=== PATIENT | male | born 1980 ===

== ENCOUNTER 2022-03-20 12:00 | Outpatient (RCR) | payer OTHER, SELFPAY ==
[2022-03-04 12:43] VITALS: BP 116/70; PULSE 76; TEMP 36.7
[2022-03-04 13:55] VITALS: BMI 30.4
--- NOTE | 2022-03-04 14:16 | PC.ADMIT ---
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 Patient reports difficulty concentrating and poor short term memory. Patient also reported work related issues however did not elaborate. 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 Patient is from [place] and plans on moving back to [place] on March 26 2022 and finishing classes online. Patient lives with his partner whom is supportive and he reports he has plans on marrying her. Refer to [facility] for more information. Patient is alert and oriented x4. Calm and cooperative. He presents with depressed mood and affect. Reports passive SI without a plan or intent to kill himself. Medications reconcield with patient and patient's pharmacy. Patient reports he is taking his medications as prescribed and is using a pill organizer.
[2022-03-04 14:50] LABS: Amphetamine Screen Urine Not Detected (Not Detect); Barbiturates, Urine Not Detected (Not Detect); Benzodiazepines Screen Urine Not Detected (Not Detect); Cannabinoid Screen Urine Not Detected (Not Detect); Cocaine Screen Urine Not Detected (Not Detect); Fentanyl, urine Not Detected (Not Detect); Opiate Screen Urine Not Detected (Not Detect); Phencyclidine Screen Urine Not Detected (Not Detect)
--- NOTE | 2022-03-04 15:02 | P.HPPSP_ITS ---
HPI Date of Service: 03/04/22 Chief Complaint: MDD,OCD Sources of Information: patient interviewed, chart reviewed and crisis/core team assessment reviewed HPI Medical Problems Affecting Mental Status: No Narrative: Patient is a 41-year-old single male, from [place], resides with his partner. She is also a PhD student at the school. Describes relationship as supportive. He has been in this [place] seven years. Referred to [facility] through his psychiatric provider at [facility], due to symptoms of increased depression, OCD, over the past 5-6 weeks. Difficulty with sleep, poor appetite. Weight stable. Symptoms include anhedonia, poor motivation, intrusive thoughts, ruminating about the past, difficulty with ADLs, feeling hopeless and helpless. Has had passive SI with no intent or plan, denies any current SI today, either active or passive. No safety concerns at this time. Has also had increased OCD symptoms, including impulsive sexual behavior, masturbation. Patient reports a long history of depression since he was 17 years old. Reports experiencing severe anxiety after a break-up of a relationship that had lasted 8 years. Currently has a new partner. 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 States that he should be completed with his course work, but that he has had to retake several classes as well as take in-complete grades due to increased symptoms of depression / OCD. Reports difficulties with cognition, processing new information, executive functioning, learning and memory. States that when he has been depressed in the past he has not had these symptoms, but that this is new. It has been recommended by psychiatric provider at [facility] that he obtain neuropsych testing. He states that he has always had difficulty in school, but has never been formally diagnosed with a learning disorder. He states that he was always able to compensate for this by spending extra time studying. States that he currently feels overwhelmed, and plans to move back to [place] at the end of this month. He says his girlfriend will remain here to complete her coursework, but that they plan to remain as a couple. He says their plan is to complete their studies and move together to pursue their careers. He reports experiencing a crisis in September of this year, where he became extremely depressed and suicidal with a plan. He was not hospitalized at that time. He states that at that time he became aware of for things. They are 1.he is not like other people; 2. he has a mental illness, which is depression; 3. He needs to go at his own pace, not compare himself to others; and 4. He needs to take life 1 day at a time. He says he has not been prescribed any psychiatric medications until recently, and he feels they are beginning to help improve his mood. Currently prescribed aripiprazole 2.5 mg daily, 2 propria on SR 100 mg b.i.d., lamotrigine 150 mg daily, sertraline 50 mg daily. He is satisfied with this current medication regimen, and would like to remain on this. He is requesting refills. Past Psychiatric History: First depressive episode age 17. Had alternative treatments in [place] when he was younger. Currently working with psychiatric nurse practitioner at [facility], MÓNICA Ward. Has therapist Agatha, who is in [place]. No previous medication trials. No history hospitalizations, respite, PHP. Medical Evaluation Reviewed: Yes [facility] Medical History History of abdominal hernia Surgical History History of parotid gland removal Family History: Mother: Alcohol is some, depression. Maternal uncle: alcohol, depression. maternal grandfather: alcohol. Social History: Born to both parents, raised in [place]. Has 1 sister and 1 brother. Describes family as supportive. Completed high school, master's degree in [place]. Moved to [facility] 7 years ago. 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 Currently struggling, has failed several courses, taken incomplete grades in others. Met developmental milestones as expected. No formal diagnosis of learning disability, however states that he has always struggled in school. States that he would put in extra time and effort in order to be successful. Resides with partner. Reports plan to move back to [place] in three weeks. Substance History: Reports drinking excessively during pandemic, reports that now he only consumes alcohol once monthly, 1-2 drinks. Trauma History: none reported Diagnostics Vital Signs (24Hr): Vital Signs - 24 hr 03/04/22 12:43 Temperature 98.0 F Pulse Rate 76 Blood Pressure 116/70 BMI result Body Mass Index 30.4 Labs Labs: Laboratory Results - last 48 hr 03/04/22 12:23 Urine Opiates Screen Not Detected Urine Fentanyl Screen Not Detected Ur Barbiturates Screen Not Detected Ur Phencyclidine Scrn Not Detected Ur Amphetamines Screen Not Detected U Benzodiazepines Scrn Not Detected Urine Cocaine Screen Not Detected U Marijuana (THC) Screen Not Detected Meds/Allergies Meds Home Medications Medication Instructions Recorded Confirmed Type aripiprazole 5 mg tablet (Abilify) 2.5 mg PO DAILY 03/04/22 03/04/22 History lamotrigine 150 mg tablet 1 tab PO DAILY 03/04/22 03/04/22 History Allergies Allergies Allergy/AdvReac Type Severity Reaction Status Date / Time No Known Allergies Allergy Verified 03/04/22 13:56 Mental Status Exam Mental Status Exam Narrative: Well developed, well nourished male, in NAD. Gait/posture within normal limits. No tics or tremors, no abnormal movements. Dressed appropriately for age/occasion. Fully cooperative with interview. Or perceptual disturbances noted. Denies any SI/HI/AH/VH. Reports that he feels safe. Patient Appearance: Well Grooomed and Appropriate Patient Orientation: Person, Place, Time and Situation Patient Behavior: Appropriate, Cooperative and Good Eye Contact Mood Description: Depressed Affect Description: Calm and Depressed Patient Cognition Impaired: No Ability to Follow Directions: Good Speech Pattern: Clear and Appropriate Memory Description: Intact Hallucinations: None Delusions: Not Present Thought Process: Intact Thought Content: positive for Intact, positive for Obsessional Thoughts, positive for Goal Oriented and positive for Linear Depressive Symptoms: Difficulty Sleeping, Changes in Appetite (decreased), Loss of Int. in Activity, Low Self Esteem, Loss of Energy and Difficulty Concentrating Judgement: Fair Assessment & Plan Assessment & Plan (1) Major depressive disorder, recurrent severe without psychotic features: Status: Acute Code(s): F33.2 - Major depressive disorder, recurrent severe without psychotic features Assessment and Plan: Patient reports longstanding history of depression, 1st episode at age 17. Reports had crisis this past September, felt actively suicidal. Did not get admitted to hospital at that time. Had alternative treatments in [place]. First time prescribed medications was recently, at [facility] [place], with PMHNP. Satisfied with current medication regimen, feels his symptoms are beginning to improve. Denies any thoughts of harm to self or others in any way. Was drinking heavily during pandemic, due to isolation. States that he stopped when pandemic lifted, and now only drinks approximately once per month, 1 to 2 drinks. Denies any concern with this. He sates he has OCD, and that the sertraline is working well with the compulsive behaviors. Had a higher dose of 100mg, but experienced side effects, dose has since been lowered to 50mg daily. Feels the OCD is under control presently. Patient reports that he plans to return home to [place] for the hol, and then plans to stay there, living with his parents. He says his parents are unaware of this plan, but that he has decided it is the best decision for him. He says he will speak about this with them soon. He has applied for a job in that country, and has been offered the position. He has been struggling with cognition, difficulty with executive function while here. He says he has had difficulty with the mathematical formulations, analyzing data in his school program. He is not sure if this is related to his depression, or that possibly he has some underlying learning disorder. It was recommended by [facility] that he obtain neuropsych testing. He has not scheduled an appointment in [place]. He says he will do this once he returns to [place]. (2) OCD (obsessive compulsive disorder): Status: Acute Code(s): F42.9 - Obsessive-compulsive disorder, unspecified Plan 1. Continue with current [facility] plan of care. 2. Continue with medication regimen as currently prescribed. Refills for bupropion, sertraline sent to pharmacy. 3. Follow-up as per protocol. Patient educated on: diagnosis, medication risk/benefits, substance abuse and therapeutic strategies Informed Consent: understands Reason for continued partial hosp. stay Substantial Risk for: harm to self, inability to function and rapid decompensation Certification I certify that partial hospital treatment is medically necessary due to the symptoms and problems resulting from the patient's mental illness and the failure to treat the patient at the partial hospital level of care would likely result in the patient requiring inpatient psychiatric care which could not be prevented at a less intensive level of care.
--- NOTE | 2022-03-07 16:48 | HO.PHPIOP ---
Case opened in treatment team
--- NOTE | 2022-03-08 16:26 | HO.PHPPROGNO ---
Subjective Subjective Date of Service: 03/08/22 Reason For Visit: MDD,OCD Interim History: Continues with depressed mood. No SI, no safety concerns. Sleep, appetite okay , no concerns. Finding groups helpful. Reports difficulty with memory, lack of concentration. Has not had neuropsych testing completed, plans to do so in [place]. Requests medication for attention. Medication Compliance: Yes Side effects from medications: No Attending Groups: Yes Review of Systems Acute medical concerns: No Medical Review of Systems: unchanged Review of Systems Review of Systems Yes all other systems are reviewed and are negative Constitutional: Reports no additional constitutional complaints Mental Status Exam Mental Status Exam Narrative: NAD Patient Appearance: Well Grooomed and Appropriate Patient Orientation: Person, Place, Time and Situation Patient Behavior: Appropriate, Cooperative and Good Eye Contact Mood Description: Depressed Affect Description: Calm and Depressed Patient Cognition Impaired: No Ability to Follow Directions: Good Speech Pattern: Clear and Appropriate Memory Description: Intact Hallucinations: None Delusions: Not Present Thought Process: Intact Thought Content: positive for Intact, positive for Obsessional Thoughts, positive for Goal Oriented and positive for Linear Depressive Symptoms: Loss of Int. in Activity, Low Self Esteem, Loss of Energy and Difficulty Concentrating Judgement: Fair Diagnostics Vital Signs (24Hr): BMI result Body Mass Index 30.4 Assessment & Plan Assessment & Plan (1) Major depressive disorder, recurrent severe without psychotic features: Status: Acute Code(s): F33.2 - Major depressive disorder, recurrent severe without psychotic features Assessment and Plan: Continues with depressed mood. No SI, no safety concerns. Sleep, appetite okay . Finding groups helpful. Has been sharing more. Reports difficulty with memory, lack of concentration, which has been ongoing. concerned, as now it is getting more difficult, as the semester in nearing end. Has not had neuropsych testing completed, plans to do so in [place]. continues to plan to move to [place] in several weeks. Requests medication for attention. Discussed need for neuropsych testing, as well as concerns regarding prescribing medication for ADD, with no diagnosis. Patient states that he is otherwise satisfied with current medication regimen. (2) OCD (obsessive compulsive disorder): Status: Acute Code(s): F42.9 - Obsessive-compulsive disorder, unspecified Assessment and Plan: Reports sertraline is helping manage sx. Plan 1. continue with current [facility] plan of care. 2. Continue with current medication regimen as prescribed. 3. Follow-up as per protocol. Patient educated on: diagnosis, medication risk/benefits and therapeutic strategies Informed Consent: understands Reason for contiued partial hosp. stay Substantial Risk for: inability to function and rapid decompensation Certification I certify that partial hospital treatment is medically necessary due to the symptoms and problems resulting from the patient's mental illness and the failure to treat the patient at the partial hospital level of care would likely result in the patient requiring inpatient psychiatric care which could not be prevented at a less intensive level of care. I spent minutes with the patient and/or on the patient floor today, greater than?50% of which was spent counseling/coordinating care. Discharge Plan Discharge Attending provider: Jake Son Medications: New sertraline 50 mg tablet 50 mg PO DAILY Qty: 30 0RF bupropion HCl [Wellbutrin SR] 100 mg tablet sustained-release 12 hr 100 mg PO BID Qty: 60 0RF No Action lamotrigine 150 mg tablet 1 tab PO DAILY aripiprazole [Abilify] 5 mg Tablet 2.5 mg PO DAILY Rx Instructions: Take 1/2 tab daily in the PM.
--- NOTE | 2022-03-12 15:33 | P.PNPSP_ITS ---
Subjective Subjective Date of Service: 03/12/22 Reason For Visit: MDD,OCD Medical Problems Affecting Mental Status: No Interim History: Reports less depressed. OCD/anxiety sx increased. Reports feeling ?guilty ?. Denies SI, no safety concerns. Medication Compliance: Yes Side effects from medications: No Attending Groups: Yes Review of Systems Acute medical concerns: No Medical Review of Systems: unchanged Review of Systems Review of Systems Yes all other systems are reviewed and are negative Constitutional: Reports no additional constitutional complaints Mental Status Exam Mental Status Exam Narrative: NAD Patient Appearance: Well Grooomed and Appropriate Patient Orientation: Person, Place, Time and Situation Level of Consciousness: Appropriate Patient Behavior: Appropriate, Cooperative and Good Eye Contact Mood Description: Anxious Affect Description: Depressed and Anxious Patient Cognition Impaired: No Ability to Follow Directions: Good Speech Pattern: Clear and Appropriate Memory Description: Intact Hallucinations: None Delusions: Not Present Thought Process: Intact Thought Content: positive for Obsessional Thoughts Depressive Symptoms: Increased Anxiety, Loss of Int. in Activity, Low Self Esteem, Loss of Energy and Difficulty Concentrating Judgement: Fair Diagnostics Vital Signs (24Hr): BMI result Body Mass Index 30.4 Assessment & Plan Assessment & Plan (1) OCD (obsessive compulsive disorder): Status: Acute Code(s): F42.9 - Obsessive-compulsive disorder, unspecified Assessment and Plan: Reports less depressed. OCD/anxiety sx increased. Reports feeling ?guilty ?. States that this is in part how he was raised, because ?I was raised to believes that nothing is good enough ?. Discussed current medication regimen. Patient had been taking 100 mg sertraline in the past, for 3 weeks. Reported that at that time he had an upset stomach, and tremor. States dose was then lowered to 50 mg. Reports that it does help with compulsions. None interested in the dose increase at this time, or a med change. Discussed the Abilify. Currently taking 2.5 mg daily. Reports that he at 1 time had been taking 5 mg, but that he has side effects. Prefers to remain at 2.5 mg daily. Discussed Wellbutrin dose. Had higher dose in past, reports side effects, prefers to remain at 100 mg at this time. Not interested in an increase in lamotrigine at this time. Denies SI, no safety concerns. Still plans to move back to [place] within next several weeks. (2) Major depressive disorder, recurrent severe without psychotic features: Status: Acute Code(s): F33.2 - Major depressive disorder, recurrent severe without psychotic features Plan 1. Continue with current [facility] plan of care. 2. Continue with current medication regimen. 3. Follow-up as per protocol. Patient educated on: diagnosis, medication risk/benefits and therapeutic strategies Informed Consent: understands Reason for contiued partial hosp. stay Substantial Risk for: inability to function and rapid decompensation Certification I certify that partial hospital treatment is medically necessary due to the symptoms and problems resulting from the patient's mental illness and the failure to treat the patient at the partial hospital level of care would likely result in the patient requiring inpatient psychiatric care which could not be prevented at a less intensive level of care. Total time managing care of this patient today __25__ minutes. Discharge Plan Discharge Attending provider: Jake Son Medications: New sertraline 50 mg tablet 50 mg PO DAILY Qty: 30 0RF bupropion HCl [Wellbutrin SR] 100 mg tablet sustained-release 12 hr 100 mg PO BID Qty: 60 0RF No Action lamotrigine 150 mg tablet 1 tab PO DAILY aripiprazole [Abilify] 5 mg Tablet 2.5 mg PO DAILY Rx Instructions: Take 1/2 tab daily in the PM.
--- NOTE | 2022-03-20 10:57 | HO.PHPPROGNO ---
Subjective Subjective Date of Service: 03/20/22 Reason For Visit: MDD,OCD Medical Problems Affecting Mental Status: No Interim History: Describes mood as ?good ?. No SI, no safety concerns. OCD sx more under control . Has found PHP program helpful, insightful. 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 Plans to move back to [place] in 1 week. Reports will connect with the psychiatric provider there, already working with a therapist there. Request refills 30 day supply of each medication. Continues with memory lapses, plans to follow through with neuropsych testing when in [place]. Medication Compliance: Yes Side effects from medications: No Attending Groups: Yes Review of Systems Acute medical concerns: No Medical Review of Systems: unchanged Review of Systems Review of Systems Yes all other systems are reviewed and are negative Constitutional: Reports no additional constitutional complaints Mental Status Exam Mental Status Exam Narrative: NAD Patient Appearance: Well Grooomed and Appropriate Patient Orientation: Person, Place, Time and Situation Level of Consciousness: Appropriate Patient Behavior: Appropriate, Cooperative and Good Eye Contact Mood Description: Calm Affect Description: Appropriate Patient Cognition Impaired: No Ability to Follow Directions: Excellent Speech Pattern: Clear and Appropriate Memory Description: Intact Hallucinations: None Delusions: Not Present Thought Process: Intact Depressive Symptoms: Low Self Esteem and Difficulty Concentrating Judgement: Good Diagnostics Vital Signs (24Hr): BMI result Body Mass Index 30.4 Assessment & Plan Assessment & Plan (1) Major depressive disorder, recurrent severe without psychotic features: Status: Acute Code(s): F33.2 - Major depressive disorder, recurrent severe without psychotic features Assessment and Plan: Patient reports feeling overall improved. Reports fluoxetine working well with OCD symptoms. No SI/HI, no safety concerns. Feels less stressed now that semester is completed. Plans to move back to [place] next week. Continues with memory lapses at times, plans to obtain the recommended neuropsychiatric testing while in [place]. Found PHP program helpful. Feels stable for discharge from program at this time. (2) OCD (obsessive compulsive disorder): Status: Acute Code(s): F42.9 - Obsessive-compulsive disorder, unspecified Plan 1. Patient appears stable for discharge from [facility] at this time. 2. Patient to follow up with outpatient providers going forward. 3. One month refill medications sent to pharmacy. Patient educated on: diagnosis, medication risk/benefits and therapeutic strategies Informed Consent: understands Reason for contiued partial hosp. stay Substantial Risk for: stable for discharge Certification I certify that partial hospital treatment is medically necessary due to the symptoms and problems resulting from the patient's mental illness and the failure to treat the patient at the partial hospital level of care would likely result in the patient requiring inpatient psychiatric care which could not be prevented at a less intensive level of care. Total time managing care of this patient today __25__ minutes. Discharge Plan Discharge Attending provider: Jake Son Medications: New aripiprazole 5 mg tablet 2.5 mg PO DAILY Qty: 30 0RF bupropion HCl [Wellbutrin SR] 100 mg tablet sustained-release 12 hr 100 mg PO BID Qty: 60 0RF lamotrigine 150 mg tablet 150 mg PO DAILY Qty: 30 0RF sertraline 50 mg tablet 50 mg PO DAILY Qty: 30 0RF Discontinued lamotrigine 150 mg tablet 1 tab PO DAILY aripiprazole [Abilify] 5 mg Tablet 2.5 mg PO DAILY Rx Instructions: Take 1/2 tab daily in the PM. Stand Alone Forms: Patient Portal Discharge page
== END 2022-03-20 23:59 | disposition home or self-care (01) ==
LOC: HO.PHPA 12:00
PROVIDERS: Visit Provider Psychiatry & Neurology Psychiatry
DX: F33.2 Major depressive disorder, recurrent severe without psychotic features (principal); F42.9 Obsessive-compulsive disorder, unspecified; Z79.899 Other long term (current) drug therapy
CPT/HCPCS: 80307; 90791; 90853